=== PATIENT | female | born 1965 | race Caucasian/White ===

== ENCOUNTER 2020-02-21 07:55 | Outpatient (CLI) | payer OTHER, SELFPAY ==
--- NOTE | ~2020-02-21 | MM_ITS ---
EXAMINATION: MM screening [facility] BI w jose HISTORY: Screening TECHNIQUE: Craniocaudal and mediolateral oblique 3-D tomosynthesis images were obtained and synthetic 2-D images were generated. CAD analysis was submitted and interpreted. COMPARISON: Comparison to multiple prior studies sequentially, with oldest reviewed study dated 02/09. BREAST PARENCHYMAL COMPOSITION: There are scattered areas of fibroglandular density. FINDINGS: There is no evidence of suspicious mass, calcification, or architectural distortion to sugg est malignancy in either breast. There has been no suspicious interval change. IMPRESSION: 1. No mammographic evidence of malignancy. 2. Recommend routine screening mammography in one year. BI-RADS Category 1: Negative Reviewed, dictated and finalized at location A.
== END 2020-02-21 07:56 | disposition home or self-care (01) ==
LOC: CHSIMG 07:58
PROVIDERS: PCP Internal Medicine; Visit Provider Internal Medicine
DX: Z12.31 Encounter for screening mammogram for malignant neoplasm of breast (principal)
CPT/HCPCS: 77063; 77067

== ENCOUNTER 2020-12-20 11:43 | Outpatient (CLI) | payer OTHER, SELFPAY ==
[2020-12-20 13:00] LABS: SARS-CoV-2 RNA PCR Negative (Negative)
== END 2020-12-20 11:44 | disposition home or self-care (01) ==
PROVIDERS: PCP Internal Medicine; Visit Provider Internal Medicine
DX: Z20.822 Contact with and (suspected) exposure to COVID-19 (principal); R53.83 Other fatigue; R51.9 Headache, unspecified; R11.0 Nausea
CPT/HCPCS: C9803; U0003; U0005

== ENCOUNTER 2021-01-02 11:16 | Outpatient (CLI) | payer OTHER, SELFPAY ==
[2021-01-02 12:27] LABS: SARS-CoV-2 RNA PCR Negative (Negative)
== END 2021-01-02 11:17 | disposition home or self-care (01) ==
LOC: CHSLAB 11:19
PROVIDERS: PCP Internal Medicine; Visit Provider Internal Medicine
DX: J06.9 Acute upper respiratory infection, unspecified (principal); J02.9 Acute pharyngitis, unspecified; Z20.822 Contact with and (suspected) exposure to COVID-19
CPT/HCPCS: 87081; 87880; C9803; U0003; U0005

== ENCOUNTER 2021-02-21 07:44 | Outpatient (CLI) | payer OTHER, SELFPAY ==
--- NOTE | ~2021-02-21 | MM_ITS ---
EXAMINATION: MM screening [facility] BI w jose HISTORY: Screening TECHNIQUE: Craniocaudal and mediolateral oblique 3-D tomosynthesis images were obtained and synthetic 2-D images were generated. CAD analysis was submitted and interpreted. COMPARISON: Comparison to multiple prior studies sequentially, with oldest reviewed study dated 01/29. BREAST PARENCHYMAL COMPOSITION: There are scattered areas of fibroglandular density. FINDINGS: There is no evidence of suspicious mass, calcification, or architectural distortion to sugg est malignancy in either breast. There has been no suspicious interval change. IMPRESSION: 1. No mammographic evidence of malignancy. 2. Recommend routine screening mammography in one year. BI-RADS Category 1: Negative Reviewed, dictated and finalized at location A.
== END 2021-02-21 07:45 | disposition home or self-care (01) ==
LOC: CHSIMG 07:45
PROVIDERS: PCP Internal Medicine; Visit Provider Internal Medicine
DX: Z12.31 Encounter for screening mammogram for malignant neoplasm of breast (principal)
CPT/HCPCS: 77063; 77067

== ENCOUNTER 2021-03-08 15:39 | Outpatient (CLI) | payer OTHER, SELFPAY ==
--- NOTE | ~2021-03-08 | XR_ITS ---
XR hand RT min 3V 03/08/2021 16:04 Indication: Right hand pain and swelling. Procedure: 3 views right hand Comparison: No prior studies for comparison. Findings: No fracture, subluxation or dislocation. There is mild osteoarthritis of the first MCP join t. Normal mineralization. No focal soft tissue abnormality. No erosive changes. No foreign bodies. 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 Reviewed, dictated and finalized at location A. 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
== END 2021-03-08 15:40 | disposition home or self-care (01) ==
LOC: CHSIMG 15:41
PROVIDERS: PCP Internal Medicine; Visit Provider Nurse Practitioner Family
DX: M79.89 Other specified soft tissue disorders (principal); R22.31 Localized swelling, mass and lump, right upper limb
CPT/HCPCS: 73130

== ENCOUNTER 2021-06-02 09:20 | Outpatient (CLI) | payer OTHER, SELFPAY ==
[2021-06-02 11:03] LABS: SARS-CoV-2 Ag Negative (Negative)
== END 2021-06-02 09:21 | disposition home or self-care (01) ==
LOC: CHSLAB 09:22
PROVIDERS: PCP Internal Medicine; Visit Provider Internal Medicine
DX: Z20.822 Contact with and (suspected) exposure to COVID-19 (principal)
CPT/HCPCS: 87426; C9803

== ENCOUNTER 2022-02-24 07:25 | Outpatient (CLI) | payer OTHER, SELFPAY ==
--- NOTE | ~2022-02-24 | MM_ITS ---
EXAMINATION: MM screening pratik BI w jose HISTORY: Screening TECHNIQUE: Craniocaudal and mediolateral oblique 3-D tomosynthesis images were obtained and synthetic 2-D images were generated. CAD analysis was submitted and interpreted. COMPARISON: Comparison to multiple prior studies sequentially, with oldest reviewed study dated 02/01. BREAST PARENCHYMAL COMPOSITION: Breast composed of scattered areas of fibroglandular density FINDINGS: There is no evidence of suspicious mass, calcification, or architectural distortion to sugg est malignancy in either breast. There has been no suspicious interval change. IMPRESSION: 1. No mammographic evidence of malignancy. 2. Recommend routine screening mammography in one year. BI-RADS Category 1: Negative Reviewed, dictated and finalized at location A.
== END 2022-02-24 07:26 | disposition home or self-care (01) ==
LOC: CHSIMG 07:29
PROVIDERS: PCP Internal Medicine; Visit Provider Obstetrics & Gynecology Gynecology
DX: Z12.31 Encounter for screening mammogram for malignant neoplasm of breast (principal)
CPT/HCPCS: 77063; 77067

== ENCOUNTER 2022-08-19 15:33 | Outpatient (CLI) | payer OTHER, SELFPAY ==
--- NOTE | ~2022-08-19 | CT_ITS ---
EXAMINATION: CT abdomen pelvis wo con DATE: 08/19/2022 16:04 INDICATION: Left flank pain. TECHNIQUE: Computed tomography (CT) of the abdomen and pelvis was performed without intravenous contr ast. Automated exposure control and iterative reconstruction technique were employed. The dose-length product was 462.44 mGy-cm. COMPARISON: None. FINDINGS: The visualized portions of the lung bases demonstrate mild atelectasis. No pleural effusion . The heart size is normal. No pericardial effusion. There is a small sliding hiatal hernia. There ar e changes of gastric sleeve procedure. The liver and gallbladder are normal. Calcifications in the sp nelia are consistent with old granulomatous disease. The pancreas, adrenal glands, and kidneys are nor mal. There is no urolithiasis. There are multiple fibroids in the uterus. There are no dilated loops of bowel. The appendix is normal. There are no pathologically enlarged lymph nodes. There is no free intraperitoneal fluid. 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 There is moderate lumbar spondylosis . IMPRESSION: 1. No urolithiasis. Reviewed, dictated and finalized at location A. IMPRESSION: 1. No urolithiasis.
== END 2022-08-19 15:34 | disposition home or self-care (01) ==
LOC: CHSIMG 15:37
PROVIDERS: PCP Internal Medicine; Visit Provider Internal Medicine
DX: R10.9 Unspecified abdominal pain (principal); R31.9 Hematuria, unspecified
CPT/HCPCS: 74176

== ENCOUNTER 2023-02-27 07:22 | Outpatient (CLI) | payer OTHER, SELFPAY ==
--- NOTE | ~2023-02-27 | MM_ITS ---
EXAMINATION: MM screening [facility] BI w jose HISTORY: Screening TECHNIQUE: Craniocaudal and mediolateral oblique 3-D tomosynthesis images were obtained and synthetic 2-D images were generated. CAD analysis was submitted and interpreted. COMPARISON: Comparison to multiple prior studies sequentially, with oldest reviewed study dated 11/06. BREAST PARENCHYMAL COMPOSITION: There are scattered areas of fibroglandular density. FINDINGS: There is no evidence of suspicious mass, calcification, or architectural distortion to sugg est malignancy in either breast. There has been no suspicious interval change. IMPRESSION: 1. No mammographic evidence of malignancy. 2. Recommend routine screening mammography in one year. BI-RADS Category 1: Negative Reviewed, dictated and finalized at location A.
== END 2023-02-27 07:23 | disposition home or self-care (01) ==
LOC: CHSIMG 07:23
PROVIDERS: PCP Internal Medicine; Visit Provider Internal Medicine
DX: Z12.31 Encounter for screening mammogram for malignant neoplasm of breast (principal)
CPT/HCPCS: 77063; 77067

== ENCOUNTER 2023-08-12 15:11 | Outpatient (CLI) | payer OTHER, SELFPAY ==
--- NOTE | ~2023-08-12 | MR_ITS ---
MRI of the left shoulder Technique: Axial proton-density fat-sat images, coronal proton density fat-sat and T2 fat-sat images, and sagittal T1-weighted and T2 fat-sat images were acquired. Clinical History: Rotator cuff tear Findings: There is mild to possibly moderate AC joint degenerative change. Small to moderate sulcal s pur present. Coracoclavicular, coracoacromial, and coracohumeral ligaments appear intact. There is probable full-thickness tear of the anterior, distal supraspinatus tendon insertion, measuri ng approximately 1.0 x 1.4 cm in extent. There is background moderate supraspinatus and infraspinatus tendinosis. No partial or full-thickness tear of the infraspinatus tendon. Subscapularis tendon is i ntact, with mild tendinosis. Tendon of the long head of the biceps is probably intact. No definite labral tear identified. Inferior glenohumeral ligament is intact. There is minimal glenohumeral joint effusion. No degenerati ve change of the glenohumeral joint. There is minimal fluid in the subacromial/subdeltoid bursa. No m uscle atrophy or edema identified. Impression: 1.0 x 1.4 cm full-thickness tear at the anterior, distal supraspinatus tendon insertion. Background r otator cuff tendinosis. [id number] AC joint degenerative change. Reviewed, dictated and finalized at location . Impression: 1.0 x 1.4 cm full-thickness tear at the anterior, distal supraspinatus tendon i nsertion. Background rotator cuff tendinosis. [id number] AC joint degenerative change.
== END 2023-08-12 15:12 ==
LOC: MICIMG 15:13
DX: M75.122 Complete rotator cuff tear or rupture of left shoulder, not specified as traumatic (principal); M67.814 Other specified disorders of tendon, left shoulder; M19.012 Primary osteoarthritis, left shoulder
CPT/HCPCS: 73221

== ENCOUNTER 2024-01-26 10:12 | Outpatient (CLI) | payer OTHER, SELFPAY ==
--- NOTE | ~2024-01-26 | MMUS_ITS ---
EXAMINATION: MM diagnostic pratik LT w jose, US breast LT limited HISTORY: Palpable left breast lump TECHNIQUE: 3-D tomosynthesis images of the left breast were performed and synthetic 2-D images were g enerated. CAD analysis was submitted and interpreted. High resolution limited left breast ultrasound was performed. COMPARISON: 02/27/2023 BREAST PARENCHYMAL COMPOSITION:Not Dense. The breasts are almost entirely fatty FINDINGS: MAMMOGRAPHIC FINDINGS: Parenchymal pattern of the left breast is unchanged. No suspicious mass lesion or distortion seen. No suspicious parenchymal calcification. ULTRASOUND: There is mild heterogeneous tissue at the area of palpable concern, but no definite discrete mass les ion seen. This could reflect focal fibrocystic change. IMPRESSION: Mildly heterogeneous tissue sonographically at the area of palpable concern, without discrete mass l esion or mammographic correlate. This is probably benign. Six-month follow-up ultrasound recommended. BI-RADS category 3, probably benign findings. Reviewed, dictated and finalized at location . IMPRESSION: Mildly heterogeneous tissue sonographically at the area of palpable concern, w ithout discrete mass lesion or mammographic correlate. This is probably benign. Six-month follow-up ultrasound recommended. BI-RADS category 3, probably benign findings.
== END 2024-01-26 10:13 | disposition home or self-care (01) ==
LOC: CHSIMG 10:14
PROVIDERS: Visit Provider Obstetrics & Gynecology Gynecology
DX: N64.4 Mastodynia (principal)
CPT/HCPCS: 76642; 77061; 77065; G0279

== ENCOUNTER 2024-03-03 07:27 | Outpatient (CLI) | payer OTHER, SELFPAY ==
--- NOTE | ~2024-03-03 | MM_ITS ---
EXAMINATION: MM screening pratik BI w jose HISTORY: Screening TECHNIQUE: Craniocaudal and mediolateral oblique 3-D tomosynthesis images were obtained and synthetic 2-D images were generated. CAD analysis was submitted and interpreted. COMPARISON: Comparison to multiple prior studies sequentially, with oldest reviewed study dated 02/08. BREAST PARENCHYMAL COMPOSITION: Not dense: There are scattered areas of fibroglandular density. FINDINGS: There is no evidence of suspicious mass, calcification, or architectural distortion to sugg est malignancy in either breast. There has been no suspicious interval change. IMPRESSION: 1. No mammographic evidence of malignancy. 2. Recommend routine screening mammography in one year. BI-RADS Category 1: Negative Reviewed, dictated and finalized at location B.
== END 2024-03-03 07:28 | disposition home or self-care (01) ==
LOC: CHSIMG 07:30
PROVIDERS: PCP Nurse Practitioner; Visit Provider Obstetrics & Gynecology Gynecology
DX: Z12.31 Encounter for screening mammogram for malignant neoplasm of breast (principal)
CPT/HCPCS: 77063; 77067

== ENCOUNTER 2025-03-07 07:21 | Outpatient (CLI) | payer OTHER, SELFPAY ==
--- NOTE | ~2025-03-07 | MM_ITS ---
EXAMINATION: MM screening [facility] BI w jose HISTORY: Screening TECHNIQUE: Craniocaudal and mediolateral oblique 3-D tomosynthesis images were obtained and synthetic 2-D images were generated. CAD analysis was submitted and interpreted. COMPARISON: Comparison to multiple prior studies sequentially, with oldest reviewed study dated 02/21/2021. BREAST PARENCHYMAL COMPOSITION: Not dense: There are scattered areas of fibroglandular density. FINDINGS: There is no evidence of suspicious mass, calcification, or architectural distortion to suggest malignancy in either breast. There has been no suspicious interval change. IMPRESSION: 1. No mammographic evidence of malignancy. 2. Recommend routine screening mammography in one year. BI-RADS Category 1: Negative Reviewed, dictated and finalized at location B.
--- OUTSIDE RECORDS SUMMARY | 2025-03-07 07:23 | XMS_ITS | Encounter Summary ---
Author Organization [facility] Address [address] [place] [address] Care Team Providers Care Production Welder Name Role Phone Efraín Guerrero MD Primary Care Provider + Encounter Details Date Type Department Care Team (Late st Contact Info) Description 12/27/2019 Abstract [facility] Operating Room [address] [phone] [place] [id number] [facility] [address] [place] [address] Social History Tobacco Use Types Packs/Day Years Used Date Smoking Tobacco: Former Alcohol Use Standard Drinks/Week Comments Yes 0 (1 standard drink = 0.6 oz pur e alcohol) Comments No Sex and Gender Information Value Date Recorded Sex Assigned at Female 04/05/2024 7:50 PM AUDIO RECORDING ENGINEER Legal Sex Female 1:16 PM AUDIO RECORDING ENGINEER Gender Identity Female 04/05/2024 7:50 PM AUDIO RECORDING ENGINEER Sexual Orientation Straight 04/05/2024 7: 50 PM AUDIO RECORDING ENGINEER COVID-19 Exposure Response Date Recorded In the last month, have you been in contact with someone who was confirmed or suspected to have Coronavirus / COVID-19? No / Unsure 12/28/2019 7:23 AM CDT documented as of this encounter Plan of Treatment Not on file documented as of this encounter Visit Diagnoses Not on filedocumented in this encounter Care Teams Production Welder Relationship Specialty Start Date End Date Efraín Guerrero MD [address] [place] [address] PCP - General Internal Medicine 09/26/19 documented as of this encounter
--- OUTSIDE RECORDS SUMMARY | 2025-03-07 07:24 | XMS_ITS | Clinical Summary ---
Author Organization [facility] Address [address] [facility] [address] [place] [address] Phone Care Team Providers Care Bottom Liquor Attendant Name Role Phone Efraín Guerrero MD Primary Care Provider + Allergies No known active allergies Medications Synthroid 125 mcg tablet 0 Active HYDROcodone-radha taminophen (HYCET) 7.5-325 mg/15 mL SolutionIndicat ions:Preop testing Take 15 mL by mouth every 6 hours as needed for severe pain. Max Daily Amount: 60 mL 300 mL 01/10/2020 1:37 PM CDT 0 Active ondansetron (Zofran ODT) 4 mg Tablet, Rapid DissolveIndicat ions:nausea Place 1 Tablet (4 mg) under tongue every 6 hours as needed for Nausea/Vomitin g. 10 Tablet 01/10/2020 1:37 PM CDT 0 Active ferrous sulfate (SLOW RELEASE IRON) 142 mg (45 mg iron) Tablet Sustained Release Take 142 mg by mouth daily. Active enzymes,digesti ve (DIGESTIVE ENZYMES ORAL) Take by mouth. A ctive testosterone 100 mg/mL topical cream compound Apply to affected area. Active prasterone, dhea, (Intrarosa) 6.5 mg Insert Insert vaginally daily at bedtime. Active CALCIUM CITRATE-VITAMIN D3 ORAL Take by mouth. Activ e multivitamin (MULTIPLE VITAMIN ORAL) Take by mouth. A ctive dexlansoprazole (DEXILANT) 60 mg Delayed Release capsule Take 1 Capsule (60 mg) by mouth daily. 180 Capsule 3 5 Active Active Problems Problem Noted Date Diagnosed Date Post-op pain 01/10/2020 Post-operative nausea and vomiting 01/10/2020 General medical exam 2020 Acquired hypothyroidism 2020 Obstructive sleep apnea 2020 Encounters Date Type Department Care Team Description 12/13/2024 External Device Data ST[facility] ABSTRACTION Provider, Abstract from Last 3 Months Immunizations Immunization Administration Dates Next Due Influenza Seasonal Unspecified Formulation IM Social History Tobacco Use Types Packs/Day Years Used Date Smoking Tobacco: Former Smokeless Tobacco: Never Alcohol Use Standard Drinks/Week Comments Yes 0 (1 standard drink = 0.6 oz pur e alcohol) Feeling Safe Answer Date Recorded Are you in a relationship wi th someone who hurts you emotionally and/or physically? No 06/10/2024 Comments No Sex and Gender Information Value Date Recorded Sex Assigned at Female 04/05/2024 7:50 PM POWER PROJECT MANAGER Legal Sex Female 1:16 PM POWER PROJECT MANAGER Gender Identity Female 04/05/2024 7:50 PM POWER PROJECT MANAGER Sexual Orientation Straight 04/05/2024 7: 50 PM POWER PROJECT MANAGER Last Filed Vital Signs Vital Sign Reading Time Taken Comments Blood Pressure 105/62 06/10/2024 7:59 AM POWER PROJECT MANAGER Pulse 64 06/10/2024 7:59 AM POWER PROJECT MANAGER Temperature 36.5 C (97.7 F) 06/10/2024 7:52 AM POWER PROJECT MANAGER Respiratory Rate 18 06/10/2024 7:59 AM POWER PROJECT MANAGER Oxygen Saturation 100% 06/10/2024 7:59 AM POWER PROJECT MANAGER Inhaled Oxygen Concentration - - Weight 77.6 kg (171 lb) 06/10/2024 6:23 AM POWER PROJECT MANAGER Height 160 cm (5' 3) 05/31/2024 10:58 AM POWER PROJECT MANAGER Body Mass Index 30.29 05/31/2024 10:58 AM POWER PROJECT MANAGER Plan of Treatment Health Maintenance Due Date Last Done Comments HPV/Cotest (21-29) 01/10/1984 CERVICAL CANCER SCREENING 1993 HPV/Cotest (30-65) 1993 PAP SMEAR 1993 BREAST CANCER SCREENING 2003 FIT-DNA Q 3 years 01/10/2008 FIT/FOBT Q 1 year 01/10/2008 Flex Sig/CT Colonography Q 5 years 01/10/2008 DTAP/TDAP/TD VACCINES (2 - Td or Tdap) 05/12/2022 Pre-Diabetes and Diabetes Screening 01/09/202301/09 INFLUENZA VACCINE (#1) 2024 02/15/2020, 2018 COLORECTAL SCREENING 02/03/2027 02/03/2017 Colorectal Cancer Screening 02/03/2027 RSV VACCINE (60+ or ) (1 - 1-dose 75+ series) 2038 ZOSTER VACCINE Completed 05/29/2023, 11/06/2022 Medical Devices Implanted Type Area Addictions Therapist Device Identifier Shelf Expiration Date Model / Serial / Lot Seamguard Endogia 60 Blk [id number] - [id number] Implanted:Qty : 2 on 2020 by Rolando Garcia MD at [facility] N/A: Stomach [employer] 05/18/2022 [id number] / / [id number] Seamguard Endogia 60 Prpl [id number] - [id number] Implanted:Qty : 2 on 2020 by Rolando Garcia MD at [facility] N/A: Stomach [employer] 05/31/2022 [id number] / / [id number] Procedures Procedure Name Priority Date/Time Associated Diagnosis Comments HEMOGLOBIN A1C Routine 01/10/2020 3:15 AM CDT from Last 3 Months or Most Recently Relevant to Health Maintenance Results * HEMOGLOBIN A1C (01/10/2020 3:15 AM CDT) HEMOGLOBIN A1C 5.6 <=5.6 % 01/10/2020 4:26 AM CDT [facility] EST. AVG GLUCOSE, A1C 114 mg/dL 01/10/2020 4:26 AM CDT [facility] Blood Venipuncture / Unknown 01/10/2020 3:15 AM CDT 01/10/2020 4:08 AM CDT Narrative [facility] - 01/10/2020 4:26 AM CDT HGB A1C INTERPRETATION NORMAL: <5.7% PRE-DIABETES: 5.7 - 6.4% DIABETES: 6.5% OR GREATER us Rolando Garcia MD CHEMISTRY ORDERABLES Final Resul t [facility] # [id number] [address] [place] [phone] from Last 3 Months or Most Recently Relevant to Health Maintenance Insurance [employer] [facility] CHOICE [id number] Advance Directives For more information, please contact: [phone] Documents on File Type Date Recorded Patient Armored Transport Service Manager Expl anation Advance Directive POA 06/10/2024 6:03 AM A dvance Directive POA * Full Code (Latest Code Status on File) Date Activated Date Inactivated Comments 06/10/2024 6:22 AM 06/10/2024 10:57 AM * Full Code Date Activated Date Inactivated Comments 2020 2:59 PM 01/10/2020 3:51 PM * Full Code Date Activated Date Inactivated Comments 2020 12:12 PM 2020 2:59 PM * Full Code Date Activated Date Inactivated Comments 2020 12:05 PM 2020 12:11 PM * Full Code Date Activated Date Inactivated Comments 09/30/2019 7:26 AM 09/30/2019 10:53 AM Care Teams Bottom Liquor Attendant Relationship Specialty Start Date End Date Efraín Guerrero MD [address] [place] [phone] PCP - General Internal Medicine 09/26/19
--- OUTSIDE RECORDS SUMMARY | 2025-03-07 07:24 | XMS_ITS | Encounter Summary ---
Author Organization [facility] Address [address] [place] [address] Phone Care Team Providers Care Body Shop Manager Name Role Phone Efraín Guerrero MD Primary Care Provider [phone] Encounter Details Date Type Department Care Team (Latest Contact Info) Description 03/06/2021 Orders Only [facility] Scanning, Provider Social History Tobacco Use Types Packs/Day Years Used Date Smoking Tobacco: Former Cigarettes 1 - 02/2011 Smokeless Tobacco: Never Comments Unknown Sex and Gender Information Value Date Recorded Sex Assigned at Not on file Legal Sex Female 10:49 AM WAX PUMPER Gender Identity Not on file Sexual Orientation Not on file documented as of this encounter Plan of Treatment Not on file documented as of this encounter Procedures Procedure Name Priority Date/Time Associated Diagnosis Comments SCAN - LABS 03/06/2021 documented in this encounter Results * SCAN - LABS (03/06/2021) us Provider Scanning Final Result documented in this encounter Visit Diagnoses Not on filedocumented in this encounter Care Teams Body Shop Manager Relationship Specialty Start Date End Date Efraín Guerrero MD [address] [place] [address] PCP - General 02/03/17 documented as of this encounter
--- OUTSIDE RECORDS SUMMARY | 2025-03-07 07:24 | XMS_ITS | Clinical Summary ---
Author Organization [facility] Address [address] [place] [phone] Care Team Providers Care Fruit Thinner Machine Operator Name Role Phone Efraín Guerrero MD Primary Care Provider + [phone] Allergies No known active allergies Medications esomeprazole DR (NexIUM) 20 mg capsule Active Synthroid 125 mcg tablet 02/23/2021 Active cyanocobalamin-c obamamide 5,000-100 mcg tablet, sublingual Place under the tongue Active multivitamin-min -iron-FA-vit K (Bariatric Multivitamins) 45 mg iron- 800 mcg-120 mcg capsule Take by mouth Active calcium-minerals -[id number] 200 mg calcium- 200 unit tablet Take by mouth Active Active Problems Problem Noted Date Diagnosed Date Family history of breast cancer in first degree relative 03/06/2021 Breast cancer screening, high risk patient 03/06 Encounter for nonprocreative genetic counseling and testing 03/06/2021 At high risk for breast cancer 03/06/2021 Breast cancer screening by mammogram 03/06/2021 Acquired hypothyroidism 12/05/2015 Gastroesophageal reflux disease 12/05/2015 Hyperlipidemia 12/05/2015 Migraine headache 12/05/2015 Vitamin D deficiency 12/05/2015 Surgical History Surgery Date Site/Laterality Comments BARIATRIC SURGERY 01/08/2020 gastric sleeve with hernia repair Medical History Medical History Date Comments H/O gastric sleeve 01/08/2020 Hernia of abdominal cavity 01/08/2020 Family History Medical History Relation Name Comments Breast cancer Daughter 1 Janee Breast cancer Daughter 2 Martha duodenal cancer Father Manolo Breast cancer Mother Stephanie Skin cancer Mother Stephanie Lung cancer Paternal Grandmother Relation Name Status Comments Brother 1 Jayy Alive Brother 2 Wellington Alive Daughter 1 Janee Alive Daughter 2 Martha Alive Father Manolo Maternal Grandfather Maternal Grandmother Mother Stephanie Alive Paternal Grandfather Paternal Grandmother Sister Vero Alive Social History Tobacco Use Types Packs/Day Years Used Date Smoking Tobacco: Former Cigarettes 1 - 02/2011 Smokeless Tobacco: Never Personal Safety Answer Date Recorded Getting School Help Needed Not on file 07/23 Comments Unknown Sex and Gender Information Value Date Recorded Sex Assigned at Not on file Legal Sex Female 10:49 AM PALLIATIVE CARE NURSE Gender Identity Not on file Sexual Orientation Not on file Obstetrics History Plan of Treatment Not on file Insurance CIGNA CIGNA Care Teams Fruit Thinner Machine Operator Relationship Specialty Start Date End Date Efraín Guerrero MD [address] [place] [address] [facility] - General 02/03/17
== END 2025-03-07 07:22 | disposition home or self-care (01) ==
PROVIDERS: PCP Nurse Practitioner
DX: Z12.31 Encounter for screening mammogram for malignant neoplasm of breast (principal)
CPT/HCPCS: 77063; 77067